=== PATIENT | male | born 1935 | race Caucasian/White ===

== ENCOUNTER → 2016-06-30 | Outpatient (CLI) | payer OTHER, MEDICARE | LOC: BHFA 10:00 | PROVIDERS: ATTEND Internal Medicine Cardiovascular Disease | DX: I35.0 Nonrheumatic aortic (valve) stenosis (principal) ==

== ENCOUNTER → 2016-09-09 | Outpatient (CLI) | payer OTHER, MEDICARE | LOC: BHCLAF 14:30 | PROVIDERS: ATTEND Internal Medicine Cardiovascular Disease | DX: I35.0 Nonrheumatic aortic (valve) stenosis (principal); I25.10 Atherosclerotic heart disease of native coronary artery without angina pectoris; E11.9 Type 2 diabetes mellitus without complications; E78.00 Pure hypercholesterolemia, unspecified; I10 Essential (primary) hypertension; I48.0 Paroxysmal atrial fibrillation | CPT/HCPCS: 93005-PO ==

== ENCOUNTER 2016-09-12 06:46 | Observation (INO) | payer OTHER, MEDICARE ==
[~2016-09-12 06:46] MED LIST: CLINDAMYCIN 600 MG/DEXTROSE 50 ML IV ONE
[2016-09-12] MEDS ORDERED: LIDOCAINE 1% 2 ML INJ ONE (06:55)
[2016-09-12] MEDS ORDERED: LIDOCAINE 1% 5 ML SDV ID PRN (07:23)
[2016-09-12] MEDS ORDERED: LR 1,000 ML IV ONE (07:23)
[2016-09-12] MEDS ORDERED: BUPIVACAINE 0.5% 30 ML SDV ONE (07:45)
[2016-09-12] MEDS ORDERED: PROPOFOL 200 MG/20 ML VIAL ONE ×2 (07:59)
[2016-09-12] MEDS ORDERED: fentaNYL 100 MCG/2 ML INJ ONE ×2 (07:59→08:11)
[2016-09-12] MEDS ORDERED: ROCURONIUM 50 MG/5 ML VIAL ONE (08:14)
[2016-09-12] MEDS ORDERED: LIDOCAINE 2% 5 ML SDV ONE (08:14)
[2016-09-12] MEDS ORDERED: HYDROmorphONE/DILAUDID 1 MG/ML SYR IVP PRN (09:28)
[2016-09-12] MEDS ORDERED: ONDANSETRON 4 MG/2 ML VIAL IVP PRN (09:28)
--- NOTE | 2016-09-12 09:31 | POSTOPPROG ---
Post Op Note Date of Operation: 09/12/16 Surgeon: Augusto Mann [employer]per [employer]ation: Mady Melendez Anesthesiologist: Jules Lozano Anesthesia: GET(General Endotracheal) Pre-op Diagnosis: incisional VH Post-op Diagnosis: same, multiple adjacent defects Procedure: open VH repair with composite mesh Findings: +hernia defect Inf/Abcess present in the surg proc area at time of surgery?: No EBL: Minimal Complications: none
[2016-09-12] MEDS: NS W/ 20 KCl/L 1,000 ML IV SCH (10:44)
--- NOTE | 2016-09-12 17:42 | SOAPPROG ---
SOAP Progress Note Assessment/Plan: Assessment: AFEBRILE/ DOING OKAY A POSTOP/ WOUND OKAY Plan: HOME IN THE A.M. 09/12/16 17:41 Objective: Vital Signs Temp Pulse Resp BP Pulse Ox 36.3 C 71 12 143/78 H 93 09/12/16 16:12 09/12/16 16:12 09/12/16 16:12 09/12/16 16:12 09/12/16 16:12 09/11/16 09/12/16 09/13/16 05:59 05:59 05:59 Intake Total 700 Output Total 15 Balance 685 ICD10 Worksheet Patient Problems: Problems Problem Status Onset Abdominal pain Acute Bacteremia Acute Sepsis Acute
[2016-09-12] MEDS: OXYCODONE/APAP 5/325 TAB PO PRN ×2 (20:02→23:56)
[2016-09-13] MEDS: NS W/ 20 KCl/L 1,000 ML IV SCH (03:39)
[2016-09-13] MEDS ORDERED: NITROGLYCERIN 0.4 MG BTL SL PRN (05:40)
[2016-09-13] MEDS ORDERED: POLYETHYLENE GLYCOL 3350 17 GM PKT PO PRN (05:40)
[2016-09-13] MEDS: OXYCODONE/APAP 5/325 TAB PO PRN ×2 (06:04→10:54)
[2016-09-13] MEDS ORDERED: metFORMIN HCL 850 MG TAB PO SCH (08:00)
[2016-09-13] MEDS ORDERED: ISOSORBIDE MONONITRATE 30 MG TAB.SR PO SCH (09:00)
[2016-09-13] MEDS ORDERED: NEBIVOLOL HCL 5 MG TAB PO SCH (09:00)
[2016-09-13] MEDS ORDERED: RAMIPRIL 5 MG CAP PO SCH (09:00)
[2016-09-13] MEDS ORDERED: ASPIRIN 81 MG CHEWABLE TAB PO SCH (09:00)
[2016-09-13] MEDS ORDERED: TAMSULOSIN HCL 0.4 MG CAP PO SCH (09:00)
[2016-09-13] MEDS ORDERED: DOCUSATE SODIUM 100 MG CAP PO ONE (10:14)
--- NOTE | 2016-09-13 11:37 | SOAPPROG ---
SOAP Progress Note Assessment/Plan: Assessment/Plan: 81 Y M s/p VH repair. POD#1. Doing well. Wean from O2. Patient uses O2 at night. If unable to wean then he will use home O2 already arranged and f/u c PCP. D/c to home. S: Minimal pain. Eating. O: gen: alert, nad ctab rrr abd: Wounds cdi. Hernia repair intact. 09/13/16 11:32 Objective: Vital Signs Temp Pulse Resp BP Pulse Ox 37.2 C 66 18 149/80 H 94 09/13/16 08:00 09/13/16 08:00 09/13/16 08:00 09/13/16 08:00 09/13/16 08:00 09/12/16 09/13/16 09/14/16 05:59 05:59 05:59 Intake Total 1900 Output Total 220 515 Balance -220 1385 ICD10 Worksheet Patient Problems: Problems Problem Status Onset Abdominal pain Acute Bacteremia Acute Sepsis Acute
--- NOTE | 2016-09-13 12:40 | GOP ---
[f rep st] OPERATIVE REPORT DATE OF OPERATION: 09/12/2016 SURGEON: Augusto Mann MD PREOPERATIVE DIAGNOSIS: Symptomatic incisional ventral hernia. POSTOPERATIVE DIAGNOSIS: Symptomatic incisional ventral hernia. PROCEDURE PERFORMED: Ventral hernia repair with mesh. FINDINGS: 2 separate midline defects which were coalesced into 1 defect measuring 6 cm in length ASST: Mady MARS DESCRIPTION OF PROCEDURE: Patient taken to the operating room where he received satisfactory general endotracheal anesthesia by Dr. Lozano. He was placed in supine position, prepped and draped in usual sterile fashion. A vertical incision was made through previous old incision in the periumbilical area. Dissection extended down through the subcutaneous tissue, and the attenuated thin hernia sac was dissected free from surrounding subcutaneous tissue and back to the fascial edges. It was comprised of 2 separate fascial defects. The sac was opened, its contents reduced. The fascial bridge was divided. The excess sac was amputated. A subfascial space was created. This was closed with a running 0 Vicryl suture. A Covidien polyester mesh dual sided patch was placed in that space and anchored peripherally around the wound with #1 Ethibond mattress sutures. The primary fascial edges were debrided back to good solid tissue and then closed directly with interrupted 0 S she has been interrupted #1 Ethibond mattress [id number] sutures. Wound was infiltrated with 0.5% Marcaine. Subcu was closed with 2-0 Vicryl, skin with 4- 0 Monocryl subcuticular stitch. He tolerated the procedure well, was taken to the recovery room in good condition. There were no complications. /[id number]/MODL MTDD
[2016-09-13 13:17] VITALS: BP 136/79; PULSE 72; RESP 20; TEMP 98; O2SAT 90
[2016-09-13] MEDS ORDERED: FAMOTIDINE 20 MG TAB PO SCH (21:00)
[2016-09-13] MEDS ORDERED: ATORVASTATIN CALCIUM 40 MG TAB PO SCH (21:00)
== END 2016-09-13 14:10 | disposition home or self-care (01) ==
LOC: FSGY 06:46 → F3E 09:36
PROVIDERS: ADMIT Surgery; ATTEND Surgery
PROC: 0WUF0JZ Supplement Abdominal Wall with Synthetic Substitute, Open Approach (ICD-10-PCS; principal; 2016-09-12 08:15)
DX: K43.0 Incisional hernia with obstruction, without gangrene (principal); I10 Essential (primary) hypertension; I25.10 Atherosclerotic heart disease of native coronary artery without angina pectoris; I48.0 Paroxysmal atrial fibrillation; E11.9 Type 2 diabetes mellitus without complications; E78.5 Hyperlipidemia, unspecified; Z88.0 Allergy status to penicillin; Z95.0 Presence of cardiac pacemaker
CPT/HCPCS: 49560; C1781; J2704; J3010

== ENCOUNTER 2016-09-15 18:22 | Inpatient (IN) | payer OTHER, MEDICARE ==
--- NOTE | 2016-09-15 18:46 | EDPHY ---
H & P Stated Complaint: Abd pain hernia surg on monday Time Seen by Provider: 09/15/16 18:45 - Personal History Current Tetanus/Diphtheria Vaccine: No Current Tetanus Diphtheria and Acellular Pertussis (TDAP): No - Medical/Surgical History Hx Asthma: No Hx Chronic Respiratory Disease: No Hx Diabetes: Yes Hx Cardiac Disease: Yes Hx Renal Disease: No Hx Cirrhosis: No Hx Alcoholism: No Hx HIV/AIDS: No Hx Splenectomy or Spleen Trauma: No Other PMH: CABG X 3, CAD, COR PULMONAE, COPD, NIDDM, BPH, JAEL, HTN, Diabetes, Cholectomy. - Social History Smoking Status: Former smoker Constitutional: Initial Vital Signs Temperature (C) 36.4 C 09/15/16 18:30 Heart Rate 81 09/15/16 18:30 Respiratory Rate 14 09/15/16 18:30 Blood Pressure 118/71 09/15/16 18:30 O2 Sat (%) 91 L 09/15/16 18:30 O2 Delivery Mode Room Air O2 (L/minute) 2 Allergies/Adverse Reactions: Penicillins Allergy (Mild, Verified 09/06/16 10:11) Rash Home Medications: Medication Instructions Recorded Aspirin EC [Aspirin EC 81 mg (*)] 81 mg PO HS 09/15/16 Atorvastatin Calcium 80 mg PO HS 09/15/16 Isosorbide Mononitrate [Imdur 30 30 mg PO DAILY 09/15/16 mg (*)] Multivitamins [Multivitamin (*)] 1 each PO DAILY 09/15/16 Nebivolol HCl [Bystolic] 10 mg PO DAILY 09/15/16 Nitroglycerin [Nitrostat 0.4 mg 0.4 mg SL AD PRN 09/15/16 (*)] Pillow-3 Fatty Acids [Fish Oil 1000 1,000 mg PO DAILY 09/15/16 mg (*)] Ramipril [Altace 5mg (*)] 5 mg PO DAILY 09/15/16 Tamsulosin HCl [Flomax 0.4 MG (*)] 0.4 mg PO DAILY 09/15/16 metFORMIN HCL [Glucophage 850 mg 850 mg PO BIDMEAL 09/15/16 (*)] Medical Decision Making - Diagnostics Imaging Results: Imaging Impressions Abdomen CT 09/15/16 19:12 Impression: 1. Sequela of recent postoperative change following a ventral wall hernia repair , with some recurrence of herniation and localized stenosis of small bowel resulting in upstream dilatation (small bowel obstruction, query localized partially entrapped bowel). 2. Small amount of perihepatic ascites. 3. Status post right hemicolectomy and cholecystectomy. Findings were discussed with Sharad Doty MD at 20:43, on 09/15/2016. Imaging: Discussed imaging studies w/ sap portal developer Radiologist, I viewed and interpreted images myself ED Course/Re-evaluation: CHIEF COMPLAINT: Abdominal pain HISTORY OF PRESENT ILLNESS: This is an 81 y/o male complaining of worsening abdominal pain onset 01:00 this morning, 18 hours ago, subsequent to a bowel movement. He has a history significant for CAD, CABG x3, diabetes, and colon cancer. He had an umbilical surgery repair on Monday, 3 days ago. He was unable to pass stool even with laxatives until this morning. He has a prior history of constipation related to opiate use following his colectomy 2 years ago. Directly after the bowel movement he developed dull and non-radiating pain he rates 2/10 in severity. His pain is worse with palpation and some movements. It did not improve with nitro or antacids. REVIEW OF SYSTEMS: A 10 point review of systems was performed and is negative with the exception of the elements mentioned in the history of present illness. PHYSICAL EXAM: HR, BP, O2 Sat, RR. Temp noted General Appearance: Alert, well hydrated, appropriate, and non-toxic appearing. Head: Atraumatic without scalp tenderness or obvious injury Eyes: Pupils equal, round, reactive to light and accommodation, EOMI, no trauma , no injection. Nose: Atraumatic, no rhinorrhea, clear. Throat: mucus membranes moist. Neck: Supple Respiratory: No retractions, no distress, no wheezes, and no accessory muscle use. Lungs are clear to auscultation bilaterally. Cardiovascular: Regular rate and rhythm, no murmurs, rubs, or gallops. Good capillary refill all extremities. Gastrointestinal: Abdomen is soft, diffuse mild tenderness worse in epigastrium , non-distended, no masses, no rebound, no guarding, no peritoneal signs. Ventral incision is clean, dry, intact. Ecchymosis to lower abdomen. Musculoskeletal: Normal active ROM of all extremities, atraumatic. Neurological: Alert, appropriate, and interactive. Nonfocal neuro exam. Skin: No rashes, good turgor, no nodules on palpation. Past medical history: Angina, CAD, diabetes, pulmonary hypertension, sleep apnea , chronic respiratory failure, BPH, colon cancer Past surgical history: Ventral hernia repair - Dr. Mann, colectomy 2 years ago , CABG x3 1993 Family history: noncontributory Social history: Former smoker. No alcohol. Family member at bedside. PCP: Dr. Will Soaker Soda Worker: Dr. Peterson Prior medical records reviewed including admission 02/27/2014 for abdominal pain. DIAGNOSTICS/PROCEDURES/CRITICAL CARE TIME: The 12 lead EKG was interpreted by myself. See hard copy and/or "tracemaster" electronic copy for interpretation. Abdominal CT: Partial small bowel obstruction DIFFERENTIAL DIAGNOSIS: The differential diagnosis for the patient's abdominal pain included but was not limited to appendicitis, cholecystitis, hernias, testicular torsion, gastritis, and urinary tract infection. MEDICAL DECISION MAKING: This is an 81 y/o male 3 days post-ventral hernia repair who presents with diffuse abdominal tenderness after a bowel movement early this morning. He has been constipated since the surgery until his bowel movement this morning. He stopped taking his pain medication today concerned it was contributing to his constipation. He has diffuse tenderness on exam. His incision site is clean, dry , and intact. Plan for IV, labs, abdominal CT, EKG, and symptom management. 4mg IV Zofran, 30mg IV Toradol, and 1L IV NS administered. 2045: CT shows partial small bowel obstruction at site of repair. Dr. Mann paged. 2047: Consulted with Dr. Mann, surgeon. He will asses patient in the ED. 2114: Dr. Mann will admit patient for partial small bowel obstruction. - Data Points Laboratory Results: Laboratory Results 09/15/16 18:55 09/15/16 18:55 09/15/16 09/15/16 18:55 18:55 WBC 6.86 10^3/uL 10^3/uL (3.80-9.50) RBC 5.20 10^6/uL 10^6/uL (4.40-6.38) Hgb 15.0 g/dL g/dL (13.7-17.5) Hct 44.7 % % (40.0-51.0) MCV 86.0 fL fL (81.5-99.8) MCH 28.8 pg pg (27.9-34.1) MCHC 33.6 g/dL g/dL (32.4-36.7) RDW 15.5 % H % (11.5-15.2) Plt Count 134 10^3/uL L 10^3/uL (150-400) MPV 10.8 fL fL (8.7-11.7) Neut % (Auto) 87.2 % H % (39.3-74.2) Lymph % (Auto) 7.4 % L % (15.0-45.0) Todd % (Auto) 5.0 % % (4.5-13.0) Eos % (Auto) 0.0 % L % (0.6-7.6) Baso % (Auto) 0.1 % L % (0.3-1.7) Nucleat RBC Rel Count 0.0 % % (0.0-0.2) Absolute Neuts (auto) 5.98 10^3/uL 10^3/uL (1.70-6.50) Absolute Lymphs (auto) 0.51 10^3/uL L 10^3/uL (1.00-3.00) Absolute Monos (auto) 0.34 10^3/uL 10^3/uL (0.30-0.80) Absolute Eos (auto) 0.00 10^3/uL L 10^3/uL (0.03-0.40) Absolute Basos (auto) 0.01 10^3/uL L 10^3/uL (0.02-0.10) Absolute Nucleated RBC 0.00 10^3/uL 10^3/uL (0-0.01) Immature Gran % 0.3 % % (0.0-1.1) Immature Gran # 0.02 10^3/uL 10^3/uL (0.00-0.10) Sodium 134 mEq/L mEq/L (134-144) Potassium 4.6 mEq/L mEq/L (3.5-5.2) Chloride 100 mEq/L mEq/L (97-110) Carbon Dioxide 19 mEq/l L mEq/l (22-31) Anion Gap 15 mEq/L mEq/L (8-16) BUN 35 mg/dL H mg/dL (7-23) Creatinine 1.0 mg/dL mg/dL (0.7-1.3) Estimated GFR > 60 Glucose 192 mg/dL H mg/dL (70-100) Calcium 9.5 mg/dL mg/dL (8.5-10.4) Total Bilirubin 2.3 mg/dL H mg/dL (0.1-1.4) Conjugated Bilirubin 0.7 mg/dL H mg/dL (0.0-0.5) Unconjugated Bilirubin 1.6 mg/dL H mg/dL (0.0-1.1) AST 24 IU/L IU/L (17-59) ALT 34 IU/L IU/L (21-72) Alkaline Phosphatase 41 IU/L IU/L (38-126) Troponin I < 0.012 ng/mL ng/mL (0-0.034) Total Protein 7.0 g/dL g/dL (6.3-8.2) Albumin 4.2 g/dL g/dL (3.5-5.0) Lipase 41.0 IU/L IU/L (23-300) Medications Given: Discontinued Medications Sodium Chloride (Ns) 1,000 mls @ 0 mls/hr IV ONCE ONE PRN Reason: Wide Open Stop: 09/15/16 19:13 Last Admin: 09/15/16 19:25 Dose: 1,000 mls Ketorolac Tromethamine (Toradol) 30 mg IVP EDNOW ONE Stop: 09/15/16 19:33 Last Admin: 09/15/16 19:40 Dose: 30 mg Ondansetron HCl (Zofran) 4 mg IVP EDNOW ONE Stop: 09/15/16 19:36 Last Admin: 09/15/16 19:39 Dose: 4 mg Departure - Departure Disposition: [facility] Inpatient Acute Clinical Impression: Partial small bowel obstruction Abdominal pain Qualifiers: Abdominal location: generalized Qualified Code(s): R10.84 - Generalized abdominal pain Condition: Fair Report Scribed for: Sharad Doty Report Scribed by: Chiara Michael Date of Report: 09/15/16 Time of Report: 19:32
--- NOTE | 2016-09-15 18:51 | CPEKG ---
Heart Rate: 83 RR Interval: 723 P-R Interval: 204 QRSD Interval: 140 QT Interval: 440 QTC Interval: 517 P Pooler: -32 QRS Pooler: 25 T Wave Pooler: -64 EKG Severity - ABNORMAL ECG - EKG Impression: SINUS RHYTHM EKG Impression: RIGHT BUNDLE BRANCH BLOCK Electronically Signed By: Sharad Doty 15-Sep-2016 22:49:54
[2016-09-15] MEDS ORDERED: NS 1,000 ML IV ONE (19:12)
[2016-09-15 19:18] LABS: % IMMATURE GRANULYOCYTES 0.3 % (0.0-1.1); ABSOLUTE IMMATURE GRANULOCYTES 0.02 10^3/uL (0.00-0.10); ADD DIFF? NO; ADD MORPH? NO; ADD SCAN? YES; ATYPICAL LYMPHOCYTE FLAG 0 (0-99); FRAGMENT RBC FLAG 0 (0-99); HEMATOCRIT 44.7 % (40.0-51.0); LIPEMIA HEMOLYSIS FLAG 80 (0-99); MEAN CELL HEMOGLOBIN 28.8 pg (27.9-34.1); MEAN CELL HEMOGLOBIN CONCENTR. 33.6 g/dL (32.4-36.7); MEAN PLATELET VOLUME 10.8 fL (8.7-11.7); PLATELET CLUMPS FLAG 20 (0-99); PLATELET COUNT 134 10^3/uL (150-400); RED CELL DISTRIBUTION WIDTH 15.5 % (11.5-15.2)
[2016-09-15 19:24] LABS: LEFT SHIFT FLG 200 (0-99)
[2016-09-15] MEDS ORDERED: ONDANSETRON 4 MG/2 ML VIAL ONE (19:27)
[2016-09-15 19:32] LABS: ALANINE AMINOTRANSFERASE 34 IU/L (21-72); ALBUMIN 4.2 g/dL (3.5-5.0); ALKALINE PHOSPHATASE 41 IU/L (38-126); ANION GAP 15 mEq/L (8-16); ASPARTATE AMINOTRANSFERASE 24 IU/L (17-59); BILIRUBIN,TOTAL 2.3 mg/dL (0.1-1.4); BILIRUBIN-CONJUGATED 0.7 mg/dL (0.0-0.5); BILIRUBIN-UNCONJUGATED 1.6 mg/dL (0.0-1.1); CALCIUM 9.5 mg/dL (8.5-10.4); CARBON DIOXIDE 19 mEq/l (22-31); CHLORIDE 100 mEq/L (97-110); GLOMERULAR FILTRATION RATE > 60; GLUCOSE 192 mg/dL (70-100); POTASSIUM 4.6 mEq/L (3.5-5.2); SODIUM 134 mEq/L (134-144)
[2016-09-15] MEDS ORDERED: KETOROLAC 30 MG/1 ML SDV IVP ONE (19:32)
[2016-09-15] MEDS ORDERED: IOPAMIDOL (ISOVUE-300) 100 ML BTL ONE (19:33)
[2016-09-15] MEDS ORDERED: ONDANSETRON 4 MG/2 ML VIAL IVP ONE (19:35)
[2016-09-15 19:41] LABS: TROPONIN I < 0.012 ng/mL (0-0.034)
[2016-09-15 19:48] LABS: SCAN NEGATIVE
[2016-09-15] MEDS: ATORVASTATIN CALCIUM 40 MG TAB PO SCH (19:51)
[2016-09-15] MEDS ORDERED: NITROGLYCERIN 0.4 MG BTL SL PRN (22:13)
--- NOTE | 2016-09-15 22:24 | SOAPPROG ---
SOAP Progress Note Assessment/Plan: Assessment: 81-YEAR-OLD MALE WHO IS 3 DAYS POSTOP FROM VENTRAL HERNIA REPAIR. ADMITTED AT THIS TIME WITH THE VAGUE ABDOMINAL PAIN AND QUESTION OF POSSIBLE SMALL BOWEL OBSTRUCTION POSTOP ON CT SCAN. LABS ARE NORMAL. HE HAS HAD NO SIGNIFICANT VOMITING AND HE HAD A NORMAL BOWEL MOVEMENT THIS MORNING. HE DID HAVE SOME HARD STRAINING FOR A BOWEL MOVEMENT AND HE IS WORRIED THAT HE COULD HAVE POP SOMETHING LOOSE DOES HAVE A SIGNIFICANT CARDIAC HISTORY ALLERGIES PENICILLIN / MEDICATIONS LISTED HEENT NONICTERIC WITHOUT ADENOPATHY AND NO ORAL LESIONS CHEST CLEAR AND SYMMETRIC CARDIAC REGULAR RHYTHM ABDOMEN IS SOFT SLIGHTLY DISTENDED NONTENDER / MIDLINE INCISION HEALING WELL / NO PALPABLE EVIDENCE OF RECURRENT HERNIA Plan: ADMIT FOR OPBS / RISKS AND OPTIONS FULLY DISCUSSED / POSSIBLE NEED FOR LAPAROSCOPY IF SYMPTOMS PERSIST 09/15/16 22:19 Objective: Vital Signs Temp Pulse Resp BP Pulse Ox 36.4 C 72 16 133/78 H 94 09/15/16 18:30 09/15/16 21:19 09/15/16 21:19 09/15/16 21:19 09/15/16 21:19 09/14/16 09/15/16 09/16/16 05:59 05:59 05:59 Intake Total 1000 Balance 1000 ICD10 Worksheet Patient Problems: Problems Problem Status Onset Abdominal pain Acute Partial small bowel obstruction Acute Bacteremia Acute Sepsis Acute
[2016-09-15] MEDS: ONDANSETRON 4 MG/2 ML VIAL IVP PRN (22:37)
[2016-09-16] MEDS: KETOROLAC 15 MG/1 ML SDV IVP SCH ×4 (00:01→19:13)
[2016-09-16] MEDS: ONDANSETRON 4 MG/2 ML VIAL IVP PRN ×2 (05:00→11:19)
[2016-09-16 05:16] LABS: ANION GAP 13 mEq/L (8-16); CALCIUM 9.4 mg/dL (8.5-10.4); CARBON DIOXIDE 22 mEq/l (22-31); CHLORIDE 101 mEq/L (97-110); GLOMERULAR FILTRATION RATE > 60; GLUCOSE 199 mg/dL (70-100); POTASSIUM 4.5 mEq/L (3.5-5.2); SODIUM 136 mEq/L (134-144)
[2016-09-16 05:26] LABS: ADD MORPH? NO; ATYPICAL LYMPHOCYTE FLAG 0 (0-99); FRAGMENT RBC FLAG 0 (0-99); HEMATOCRIT 44.4 % (40.0-51.0); HEMOGLOBIN 14.9 g/dL (13.7-17.5); LIPEMIA HEMOLYSIS FLAG 80 (0-99); MEAN CELL HEMOGLOBIN 28.7 pg (27.9-34.1); MEAN CELL HEMOGLOBIN CONCENTR. 33.6 g/dL (32.4-36.7); MEAN CELL VOLUME 85.5 fL (81.5-99.8); MEAN PLATELET VOLUME 10.5 fL (8.7-11.7); PLATELET CLUMPS FLAG 0 (0-99); PLATELET COUNT 127 10^3/uL (150-400); RED BLOOD CELL COUNT 5.19 10^6/uL (4.40-6.38); RED CELL DISTRIBUTION WIDTH 15.8 % (11.5-15.2)
[2016-09-16 05:27] LABS: ADD SCAN? YES
[2016-09-16 05:31] LABS: LEFT SHIFT FLG 300 (0-99)
[2016-09-16 06:08] LABS: ADD DIFF? YES; SCAN POSITIVE
[2016-09-16 06:15] LABS: PLATELET ESTIMATE DECREASED (ADEQ)
[2016-09-16] MEDS ORDERED: PANTOPRAZOLE SODIUM 40 MG in NS 100 ML IV ONE (08:00)
[2016-09-16] MEDS: RAMIPRIL 5 MG CAP PO SCH ×2 (08:04→10:28)
[2016-09-16] MEDS: NEBIVOLOL HCL 5 MG TAB PO SCH ×2 (08:05→10:30)
[2016-09-16] MEDS: ISOSORBIDE MONONITRATE 30 MG TAB.SR PO SCH ×2 (08:06→10:28)
[2016-09-16] MEDS: TAMSULOSIN HCL 0.4 MG CAP PO SCH (10:43)
[2016-09-16] MEDS ORDERED: BUPIVACAINE 0.5% 30 ML SDV ONE (11:38)
[2016-09-16] MEDS ORDERED: HEPARIN 1000 UNIT/1 ML MDV ONE (11:39)
[2016-09-16] MEDS ORDERED: THROMBIN(HUM PLAS)/FIBRINOG/CA 5 ML VIAL TP ONE (11:39)
[2016-09-16] MEDS ORDERED: ceFAZolin 1 GM/5 ML SYR ONE (11:39)
[2016-09-16] MEDS: D5W 1/2 NS W/ 20 KCl/L 1,000 ML IV SCH ×3 (13:45→21:00)
--- NOTE | 2016-09-16 16:28 | PDCARPN ---
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 #. CAD: has had ventral hernia repair last week His last MPI from 08/07 showed inf-lat ischemia which stable and likely due to SPACE OPERATIONS OFFICER LCx He has been on med management and has angina only at higher levels of exertion Continue BB and if NPO he may have IV Metoprolol OK to proceed to surgery if warranted for SBO #. mild : we have followed him with serial echoes Plan: Cardiology will follow along 09/16/16 16:25 Objective: Intake/Output (24 Hrs) 09/15/16 09/16/16 09/17/16 05:59 05:59 05:59 Output Total 3700 Balance -3700 Output: Urine (ml) 300 Urinal 300 NG Drainage (ml) 3400 Large Bore (>12 Guamanian) 3400 Result Diagrams: 09/16/16 04:53 09/16/16 04:53 - Physical Exam Constitutional: no apparent distress Eyes: anicteric sclera Ears, Nose, Mouth, Throat: moist mucous membranes Cardiovascular: regular rate and rhythm, systolic murmur Respiratory: clear to auscultate bilat Gastrointestinal: no tenderness, other (+BS) Neurologic: AAOx3 Psychiatric: cooperative, interactive ICD10 Worksheet Patient Problems: Problems Problem Status Onset Abdominal pain Acute Sepsis Acute Bacteremia Acute Partial small bowel obstruction Acute
[2016-09-16] MEDS ORDERED: fentaNYL 100 MCG/2 ML INJ ONE ×2 (17:01)
[2016-09-16] MEDS ORDERED: PROPOFOL/EMULSION 500 MG/50 ML BOTTLE IV ONE (17:02)
[2016-09-16] MEDS ORDERED: CLINDAMYCIN 600 MG/DEXTROSE/50 ML BAG IV ONE (17:32)
[2016-09-16] MEDS ORDERED: CLINDAMYCIN 600 MG/DEXTROSE 50 ML IV ONE (18:00)
--- NOTE | 2016-09-16 19:48 | SOAPPROG ---
SOAP Progress Note Assessment/Plan: Assessment: 81-YEAR-OLD MALE WHO IS 3 DAYS POSTOP FROM VENTRAL HERNIA REPAIR. ADMITTED AT THIS TIME WITH THE VAGUE ABDOMINAL PAIN AND QUESTION OF POSSIBLE SMALL BOWEL OBSTRUCTION POSTOP ON CT SCAN. LABS ARE NORMAL. HE HAS HAD NO SIGNIFICANT VOMITING AND HE HAD A NORMAL BOWEL MOVEMENT THIS MORNING. HE DID HAVE SOME HARD STRAINING FOR A BOWEL MOVEMENT AND HE IS WORRIED THAT HE COULD HAVE POP SOMETHING LOOSE DOES HAVE A SIGNIFICANT CARDIAC HISTORY ALLERGIES PENICILLIN / MEDICATIONS LISTED HEENT NONICTERIC WITHOUT ADENOPATHY AND NO ORAL LESIONS CHEST CLEAR AND SYMMETRIC CARDIAC REGULAR RHYTHM ABDOMEN IS SOFT SLIGHTLY DISTENDED NONTENDER / MIDLINE INCISION HEALING WELL / NO PALPABLE EVIDENCE OF RECURRENT HERNIA Plan: ADMIT FOR OPBS / RISKS AND OPTIONS FULLY DISCUSSED / POSSIBLE NEED FOR LAPAROSCOPY IF SYMPTOMS PERSIST 09/15/16 22:19 09/16/16 19:47 SMALL-BOWEL OBSTRUCTION SYMPTOMS HAVE PERSISTED / NG PLACED THIS A.M. IS DRAIN 2500 CC / MINIMAL FLATUS OR BOWEL MOVES / ABDOMEN SOFT AND NONTENDER BUT SLIGHTLY DISTENDED RISKS AND OPTIONS FULLY DISCUSSED / I RECOMMEND WE PROCEED WITH THE LAPAROSCOPY TO RULE OUT AN INTERNAL HERNIA Objective: Vital Signs Temp Pulse Resp BP Pulse Ox 36.6 C 75 17 116/64 94 09/16/16 19:45 09/16/16 19:45 09/16/16 19:45 09/16/16 19:45 09/16/16 19:45 09/15/16 09/16/16 09/17/16 05:59 05:59 05:59 Intake Total 1000 Output Total 3700 Balance -2700 ICD10 Worksheet Patient Problems: Problems Problem Status Onset Abdominal pain Acute Partial small bowel obstruction Acute Bacteremia Acute Sepsis Acute
--- NOTE | 2016-09-16 19:50 | POSTOPPROG ---
Post Op Note Date of Operation: 09/16/16 Surgeon: Augusto Mann Anesthesiologist: JESSICA Anesthesia: GET(General Endotracheal) Pre-op Diagnosis: SMALL-BOWEL OBSTRUCTION Post-op Diagnosis: SAME WITH INTERNAL HERNIA Indication: LARGE NG OUTPUT Procedure: LAPAROSCOPIC REDUCTION OF INTERNAL HERNIA AND REPAIR Findings: SUB-PERITONEAL INTERNAL HERNIA POCKET SECONDARY TO BREAKDOWN OF THE TATIANNA Inf/Abcess present in the surg proc area at time of surgery?: No Depth: Organ Space EBL: Minimal Complications: NONE Specimen(s): NONE
[2016-09-16] MEDS ORDERED: D5W 1/2 NS W/ 20 KCl/L 1,000 ML IV SCH (20:00)
[2016-09-17] MEDS: KETOROLAC 15 MG/1 ML SDV IVP SCH ×3 (00:06→12:21)
[2016-09-17] MEDS: D5W 1/2 NS W/ 20 KCl/L 1,000 ML IV SCH ×3 (04:00→17:57)
[2016-09-17] MEDS: ISOSORBIDE MONONITRATE 30 MG TAB.SR PO SCH (08:43)
[2016-09-17] MEDS: RAMIPRIL 5 MG CAP PO SCH (08:43)
[2016-09-17] MEDS: NEBIVOLOL HCL 5 MG TAB PO SCH (08:43)
[2016-09-17] MEDS: TAMSULOSIN HCL 0.4 MG CAP PO SCH (08:44)
--- NOTE | 2016-09-17 10:38 | SOAPPROG ---
[facility] Progress Note Assessment/Plan: 1. SBO - Pt admitted with SBO. He is s/p surgery. Still requires NG tube. 2. CAD - Pt has known CAD. He is s/p CABG in 1993. Angiogram in 2003 with SUPERVISOR PAPER MACHINE of LCX. Pt managed medically since this time for stable angina. Recent stress test on 07/07/16 with lateral infarct c/w SUPERVISOR PAPER MACHINE. Pt denies symptoms of angina at this time. --> Continue medical management bystolic, ramapril, and imdur. --> Resume Asa when appropriate 3. HTN - Well controlled. --> Continue current therapy. Subjective: + abdominal pain No angina No orthopnea or PND Objective: Vital Signs Temp Pulse Resp BP Pulse Ox 36.8 C 67 17 112/63 90 L 09/17/16 08:00 09/17/16 08:00 09/17/16 08:00 09/17/16 08:00 09/17/16 08:00 09/16/16 09/17/16 09/18/16 05:59 05:59 05:59 Intake Total 2017 Output Total 3952 Balance -1933 Physical Exam - Physical Exam General Appearance: alert, mild distress Respiratory: lungs clear Cardiac/Chest: regular rate, rhythm, systolic murmur Abdomen: soft, No normal bowel sounds Skin: normal color Extremities: No pedal edema Neuro/Psych: alert ICD10 Worksheet Patient Problems: Problems Problem Status Onset Abdominal pain Acute Partial small bowel obstruction Acute Bacteremia Acute Sepsis Acute
--- NOTE | 2016-09-17 13:54 | SOAPPROG ---
SOAP Progress Note Assessment/Plan: Assessment: s/p laparoscopy and reduction of hernia NG output still dark with 150 cc since 6 am Hopefully will be able to remove tomorrow Having loose stools S: Feeling improved O: Sitting in bed, at bedside Ecchymosis on lower abdomen Incisions cdi BS hypoactive NG with very dark bilious output Plan: 09/17/16 13:52 Objective: Vital Signs Temp Pulse Resp BP Pulse Ox 36.6 C 70 17 118/69 94 09/17/16 12:00 09/17/16 12:00 09/17/16 12:00 09/17/16 12:00 09/17/16 12:33 09/16/16 09/17/16 09/18/16 05:59 05:59 05:59 Intake Total 2017 Output Total 8424 450 Balance -1933 -450 ICD10 Worksheet Patient Problems: Problems Problem Status Onset Abdominal pain Acute Partial small bowel obstruction Acute Bacteremia Acute Sepsis Acute
[2016-09-17] MEDS ORDERED: NON-FORMULARY NEW DRUG (Atorvastatin Calcium [Atorvastatin Calcium] 80 MG) PO SCH (21:00)
[2016-09-17] MEDS: ASPIRIN EC 81 MG TAB PO SCH (21:26)
[2016-09-17] MEDS: ATORVASTATIN CALCIUM 40 MG TAB PO SCH (21:26)
[2016-09-18] MEDS: HYDROmorphONE/DILAUDID 1 MG/ML SYR IVP PRN ×2 (04:31→08:21)
[2016-09-18 08:04] LABS: % IMMATURE GRANULYOCYTES 0.7 % (0.0-1.1); ABSOLUTE IMMATURE GRANULOCYTES 0.04 10^3/uL (0.00-0.10); ADD DIFF? NO; ADD MORPH? NO; ADD SCAN? YES; ATYPICAL LYMPHOCYTE FLAG 0 (0-99); FRAGMENT RBC FLAG 0 (0-99); HEMATOCRIT 39.9 % (40.0-51.0); HEMOGLOBIN 13.2 g/dL (13.7-17.5); LIPEMIA HEMOLYSIS FLAG 80 (0-99); MEAN CELL HEMOGLOBIN 28.9 pg (27.9-34.1); MEAN CELL HEMOGLOBIN CONCENTR. 33.1 g/dL (32.4-36.7); MEAN CELL VOLUME 87.5 fL (81.5-99.8); MEAN PLATELET VOLUME 9.7 fL (8.7-11.7); PLATELET CLUMPS FLAG 0 (0-99); PLATELET COUNT 101 10^3/uL (150-400); RED BLOOD CELL COUNT 4.56 10^6/uL (4.40-6.38); RED CELL DISTRIBUTION WIDTH 15.3 % (11.5-15.2)
[2016-09-18 08:05] LABS: LEFT SHIFT FLG 100 (0-99)
[2016-09-18] MEDS: D5W 1/2 NS W/ 20 KCl/L 1,000 ML IV SCH ×2 (08:20→23:27)
[2016-09-18] MEDS: TAMSULOSIN HCL 0.4 MG CAP PO SCH (08:25)
[2016-09-18] MEDS: RAMIPRIL 5 MG CAP PO SCH (08:25)
[2016-09-18] MEDS: ISOSORBIDE MONONITRATE 30 MG TAB.SR PO SCH (08:25)
[2016-09-18] MEDS: NEBIVOLOL HCL 5 MG TAB PO SCH (08:25)
[2016-09-18 08:26] LABS: SCAN POSITIVE
[2016-09-18 08:29] LABS: PLATELET ESTIMATE DECREASED (ADEQ)
--- NOTE | 2016-09-18 10:54 | SOAPPROG ---
SOAP Progress Note Assessment/Plan: Assessment: s/p laparoscopy and reduction of hernia NG output vest maker but >500 out in 12 hours Clamp trial this afternoon Hard candy okay. 1 popsicle per shift okay S: Feeling improved O: Sitting in bed, at bedside Ecchymosis on lower abdomen Incisions cdi BS present NG with thin bilious output CTAB Regular Plan: 09/17/16 13:52 09/18/16 10:53 Objective: Vital Signs Temp Pulse Resp BP Pulse Ox 36.7 C 68 16 156/76 H 89 L 09/18/16 08:00 09/18/16 08:00 09/18/16 08:00 09/18/16 08:00 09/18/16 08:32 Laboratory Results 09/18/16 07:50 09/17/16 09/18/16 09/19/16 05:59 05:59 05:59 Intake Total 2016 2750 100 Output Total 3950 3180 550 Balance -1933 -430 -450 ICD10 Worksheet Patient Problems: Problems Problem Status Onset Abdominal pain Acute Partial small bowel obstruction Acute Bacteremia Acute Sepsis Acute
--- NOTE | 2016-09-18 14:49 | SOAPPROG ---
JANE Progress Note Assessment/Plan: 1. SBO - Pt admitted with SBO. He is s/p surgery. NG clamp trial this afternoon. 2. CAD - Pt has known CAD. He is s/p CABG in 1993. Angiogram in 2003 with DIGITIZER of LCX. Pt managed medically since this time for stable angina. Recent stress test on 07/07/16 with lateral infarct c/w DIGITIZER. Pt denies symptoms of angina at this time. --> Continue medical management bystolic, ramapril, and imdur. --> Resume Asa when appropriate 3. HTN - BP elevated today. --> Consider increasing ramapril 09/18/16 14:47 Subjective: NPO abdominal pain improved limited ambulation No orthopnea or PND Objective: Vital Signs Temp Pulse Resp BP Pulse Ox 36.4 C 70 16 122/73 H 95 09/18/16 12:00 09/18/16 12:00 09/18/16 12:00 09/18/16 12:00 09/18/16 12:00 Laboratory Results 09/18/16 07:50 09/17/16 09/18/16 09/19/16 05:59 05:59 05:59 Intake Total 2016 2750 100 Output Total 3950 3180 1000 Balance -1922 -597 -397 Physical Exam - Physical Exam General Appearance: alert, no apparent distress Respiratory: lungs clear Cardiac/Chest: regular rate, rhythm Neuro/Psych: alert, oriented x 3 ICD10 Worksheet Patient Problems: Problems Problem Status Onset Abdominal pain Acute Partial small bowel obstruction Acute Bacteremia Acute Sepsis Acute
[2016-09-18] MEDS: CEPACOL LOZENGE PO PRN ×2 (16:21→23:14)
[2016-09-18] MEDS: ATORVASTATIN CALCIUM 40 MG TAB PO SCH (20:38)
[2016-09-18] MEDS: ASPIRIN EC 81 MG TAB PO SCH (20:39)
--- NOTE | 2016-09-19 08:10 | PDCARPN ---
Cardiology Progress Note Assessment/Plan: 1. SBO - Pt admitted with SBO. He is s/p surgery. NG tube removed 09/18. Limited PO. No BM. + gas. 2. CAD - Pt has known CAD. He is s/p CABG in 1993. Angiogram in 2003 with EXIT BOOTH AGENT of LCX. Pt managed medically since this time for stable angina. Recent stress test on 07/07/16 with lateral infarct c/w EXIT BOOTH AGENT. Pt denies symptoms of angina at this time. --> Continue medical management bystolic, ramapril, and imdur. --> Resume Asa when appropriate 3. HTN - Reasonably well controlled. --> Continue current therapy. 4. Disposition - Currently stable from a cardiovascular stand point. Will sign off for now. Please call if we can be of further assistance. Subjective: No chest pain No orthopnea or PND ambulating around pod NG tube removed on 09/18. Eating popsicles. No BM Objective: Vital Signs (8 Hrs) Temp Pulse Resp BP Pulse Ox 09/19/16 07:07 36.6 C 71 17 144/85 H 92 09/19/16 04:00 36.6 C 72 16 123/74 H 90 L Intake/Output (24 Hrs) 09/18/16 09/19/16 09/20/16 05:59 05:59 05:59 Intake Total 2750 3094 Output Total 3180 3125 550 Balance -430 -31 -550 Intake: Oral (ml) 50 140 IV Intake (ml) 1200 1600 IV Infused (ml) 1500 1354 D5W 1/2 NS W/ 20 KCl/L 1, 1500 1354 000 ml @ 125 mls/hr IV CONT CAITLYN Rx#:[id number] Output: Urine (ml) 2230 2825 550 Bedside Commode 600 1000 Incontinence 200 Urinal 1630 1625 550 NG Drainage (ml) 950 300 Large Bore (>12 Burkinan) 950 300 Other: Intake Quantity No Sufficient Number of Voids Bedside Commode 2 2 Urinal 1 3 1 Result Diagrams: 09/18/16 07:50 09/16/16 04:53 - Physical Exam Cardiovascular: regular rate and rhythm Respiratory: clear to auscultate bilat Skin: No no edema ICD10 Worksheet Patient Problems: Problems Problem Status Onset Abdominal pain Acute Partial small bowel obstruction Acute Bacteremia Acute Sepsis Acute
[2016-09-19] MEDS: ISOSORBIDE MONONITRATE 30 MG TAB.SR PO SCH (08:46)
[2016-09-19] MEDS: TAMSULOSIN HCL 0.4 MG CAP PO SCH (08:47)
[2016-09-19] MEDS: RAMIPRIL 5 MG CAP PO SCH (08:47)
[2016-09-19] MEDS: NEBIVOLOL HCL 5 MG TAB PO SCH (08:48)
--- NOTE | 2016-09-19 17:10 | SOAPPROG ---
SOAP Progress Note Assessment/Plan: Assessment: s/p laparoscopy and reduction of hernia NG removed last evening Tolerated clears Advance diet Hopefully home tomorrow S: Feeling improved, passing flatus O: Sitting in bed, at bedside Ecchymosis on lower abdomen Incisions cdi BS present Softer today CTAB Regular Plan: 09/17/16 13:52 09/18/16 10:53 09/19/16 17:09 Objective: Vital Signs Temp Pulse Resp BP Pulse Ox 36.3 C 74 18 142/73 H 91 L 09/19/16 16:00 09/19/16 16:00 09/19/16 16:00 09/19/16 16:00 09/19/16 16:00 Laboratory Results 09/18/16 07:50 09/18/16 09/19/16 09/20/16 05:59 05:59 05:59 Intake Total 2750 3094 Output Total 1020 2776 550 Balance -430 -31 -550 ICD10 Worksheet Patient Problems: Problems Problem Status Onset Abdominal pain Acute Partial small bowel obstruction Acute Bacteremia Acute Sepsis Acute
[2016-09-19] MEDS ORDERED: POLYETHYLENE GLYCOL 3350 17 GM PKT PO PRN (17:14)
[2016-09-19] MEDS ORDERED: LACTULOSE 20 GM/30 ML UDCUP PO PRN (17:14)
[2016-09-19] MEDS ORDERED: MAGNESIUM HYDROXIDE 30 ML UDCUP PO PRN (17:14)
[2016-09-19] MEDS ORDERED: BISACODYL 10 MG SUPP PR PRN (17:14)
[2016-09-19] MEDS: ASPIRIN EC 81 MG TAB PO SCH (19:51)
[2016-09-19] MEDS: SENNOSIDES/DOCUSATE SODIUM TAB PO SCH (19:52)
[2016-09-20] MEDS: TAMSULOSIN HCL 0.4 MG CAP PO SCH (09:40)
[2016-09-20] MEDS: SENNOSIDES/DOCUSATE SODIUM TAB PO SCH (09:40)
[2016-09-20] MEDS: ISOSORBIDE MONONITRATE 30 MG TAB.SR PO SCH (09:40)
[2016-09-20] MEDS: NEBIVOLOL HCL 5 MG TAB PO SCH (09:40)
[2016-09-20] MEDS: RAMIPRIL 5 MG CAP PO SCH (09:40)
[2016-09-20 11:57] VITALS: BP 116/73; PULSE 60; RESP 15; TEMP 98; O2SAT 94
--- NOTE | 2016-09-20 12:27 | CPEKG ---
Heart Rate: 65 RR Interval: 923 QRSD Interval: 136 QT Interval: 420 QTC Interval: 437 QRS [place]: 1 T Wave [place]: 5 EKG Severity - ABNORMAL ECG - EKG Impression: ATRIAL FIBRILLATION, V-RATE 47-77 EKG Impression: RIGHT BUNDLE BRANCH BLOCK EKG Impression: ATRIAL FIBRILLATION IS NEW IN COMPARISON TO PRIOR ECG Electronically Signed By: Kamron Patrick 22-Sep-2016 12:04:46
--- NOTE | 2016-09-20 13:58 | SOAPPROG ---
SOAP Progress Note Assessment/Plan: Assessment: 81-YEAR-OLD MALE WHO IS 3 DAYS POSTOP FROM VENTRAL HERNIA REPAIR. ADMITTED AT THIS TIME WITH THE VAGUE ABDOMINAL PAIN AND QUESTION OF POSSIBLE SMALL BOWEL OBSTRUCTION POSTOP ON CT SCAN. LABS ARE NORMAL. HE HAS HAD NO SIGNIFICANT VOMITING AND HE HAD A NORMAL BOWEL MOVEMENT THIS MORNING. HE DID HAVE SOME HARD STRAINING FOR A BOWEL MOVEMENT AND HE IS WORRIED THAT HE COULD HAVE POP SOMETHING LOOSE DOES HAVE A SIGNIFICANT CARDIAC HISTORY ALLERGIES PENICILLIN / MEDICATIONS LISTED HEENT NONICTERIC WITHOUT ADENOPATHY AND NO ORAL LESIONS CHEST CLEAR AND SYMMETRIC CARDIAC REGULAR RHYTHM ABDOMEN IS SOFT SLIGHTLY DISTENDED NONTENDER / MIDLINE INCISION HEALING WELL / NO PALPABLE EVIDENCE OF RECURRENT HERNIA Plan: ADMIT FOR OPBS / RISKS AND OPTIONS FULLY DISCUSSED / POSSIBLE NEED FOR LAPAROSCOPY IF SYMPTOMS PERSIST 09/15/16 22:19 09/16/16 19:47 SMALL-BOWEL OBSTRUCTION SYMPTOMS HAVE PERSISTED / NG PLACED THIS A.M. IS DRAIN 2500 CC / MINIMAL FLATUS OR BOWEL MOVES / ABDOMEN SOFT AND NONTENDER BUT SLIGHTLY DISTENDED RISKS AND OPTIONS FULLY DISCUSSED / I RECOMMEND WE PROCEED WITH THE LAPAROSCOPY TO RULE OUT AN INTERNAL HERNIA 09/20/16 13:56 doing well/ afebrile/ bradycardic/ wound ok/ uo good/ +bm,loose/ home soon Objective: Vital Signs Temp Pulse Resp BP Pulse Ox 36.6 C 60 15 116/73 94 09/20/16 11:55 09/20/16 11:55 09/20/16 11:55 09/20/16 11:55 09/20/16 11:55 Laboratory Results 09/18/16 07:50 09/19/16 09/20/16 09/21/16 05:59 05:59 05:59 Intake Total 3094 300 150 Output Total 3125 750 Balance -31 -450 150 ICD10 Worksheet Patient Problems: Problems Problem Status Onset Abdominal pain Acute Partial small bowel obstruction Acute Bacteremia Acute Sepsis Acute
--- NOTE | 2016-09-20 14:48 | GOP ---
[f rep st] OPERATIVE REPORT DATE OF OPERATION: SURGEON: Augusto Mann MD ANESTHESIOLOGIST: Wing Fair MD. PREOPERATIVE DIAGNOSIS: Small bowel obstruction. POSTOPERATIVE DIAGNOSIS: Small bowel obstruction with internal herniation. PROCEDURE PERFORMED: Laparoscopic reduction of internal hernia and repair. FINDINGS: The patient was found to have a subperitoneal internal hernia pocket secondary to a break down of the peritoneal closure causing a small bowel obstruction. The small bowel was quite viable, no particular problem. DESCRIPTION OF PROCEDURE: Patient was taken to the operating room, received satisfactory general en dotracheal anesthesia by Dr. Fair, placed in supine position, prepped and draped in usual sterile fashion. A short incision was made in the left lower quadrant. A Veress needle was inserted. Pneu moperitoneum was established. A trocar was introduced. Laparoscope introduced. Good visualization was obtained. It appeared to be apparent that there was an incarcerated hernia. Second trocar was placed in the left lower quadrant as well under direct vision. A hernia was reduced. The small maycol wel was pulled out. It appeared to be quite viable. The hernia defect was exposed. A portion of t he peritoneum was incised and the peritoneal limbs were tacked up to the previously placed mesh and abdominal wall with multiple Protac applications obliterating the internal hernia space. Hemostasis was assured. Trocars were then removed under direct vision and pneumopreperitoneum was released. Trocar sites were closed with 4-0 Monocryl subcuticular stitches, and the wounds were infiltrated wi th 0.5% Marcaine. Tolerated the procedure quite well, was taken to the recovery room in good condit ion. No complications. /[id number]/MODL
--- NOTE | 2016-09-20 15:18 | GCON ---
[f rep st] CONSULTATION CARDIOVASCULAR CONSULTATION HISTORY OF PRESENT ILLNESS: The patient was admitted to the hospital recently for a small bowel obs truction. That has been repaired by Dr. Mann in the Surgical Service. He is being followed very closely, and he has had a low heart rate intermittently. An EKG showed a right bundle-branch block and atrial fibrillation with a slow ventricular response. The patient has had a history of atrial fibrillation in the past, and he has no complaints or sympto ms of it, and he is not even aware that he is having atrial fibrillation. He has been taking his medications. He had been doing well, and he has not been having any other pr oblems. He feels much better after his surgery. His abdomen is much, much better. He does not smo ke. He does not drink significant amounts of alcohol. He is quite active. Now postoperatively he has had atrial fibrillation with a slow ventricular response. He is not having any other complaints like fevers, chills. He is not having nausea or vomiting now. He is not lightheaded or dizzy. He has had no focal neurologic deficits. He has had no chest sherron n, chest tightness, jaw pain, or arm pain. He has not had orthopnea, PND, or dyspnea on exertion. He has had no trauma recently. CARDIAC RISK FACTORS: Include diabetes mellitus, hyperlipidemia, coronary artery bypass grafting. His cardiac risk factors are negative for myocardial infarction, PCI, hyperuricemia, obesity, or smo pollo history. He has no other complaints right at this time except he is trying to move his bowels after his bowel surgery. REVIEW OF SYSTEMS: A 10-point review of systems negative except as noted above. Obstructive sleep apnea, COPD, cor pulmonale. PAST MEDICAL HISTORY: Including cecal carcinoma. Cardiac-hedrick he is known to have moderate mitral regurgitation, mild aortic stenosis, dyslipidemia, hypertension as noted. 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 PAST SURGICAL HISTORY: Status post cholecystectomy. MEDICATIONS: At home are aspirin, atorvastatin, Isordil, Bystolic, nitroglycerin, ramipril, Flomax, Glucophage. ALLERGIES: Penicillin. SOCIAL HISTORY: He was born in [place], [place]. 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 He still walks 3 times a week at the [facility] and is walki ng a further distance all the time. He lives with his , and she is healthy. PHYSICAL EXAMINATION: VITAL SIGNS: Blood pressure 120/75, heart rate 44, respiratory rate 12. GEN ERAL: Lying comfortably in bed. NECK: Supple. CARDIOVASCULAR: Reveals S1 and S2, irregularly ir regular. Soft systolic ejection murmur second right intercostal space without significant radiation to the neck, and he also has a soft systolic murmur left sternal border. ABDOMEN: Soft. Bowel so unds are diminished. CVA: No tenderness. SKIN: Shows age-related changes. EXTREMITIES: No lena a, inflammation, or ulceration. NEUROLOGIC: Grossly intact. PSYCH: No obvious anxiety or depression. ASSESSMENT AND PLAN: 1. Coronary artery disease. 2. Dyslipidemia. 3. Diabetes mellitus. 4. History of atrial fibrillation. 5. Partial bowel obstruction. The patient is postoperative and is having atrial fibrillation with slow ventricular response. He feels very well and wants to go home. His [id number] score is high enough so that he should be on full anticoagulation, but he has had it before, and he has had profound bleeding from the rectum and orally in the GI tract. So he does not want to take Xarelto, Eliquis, or any of those drugs. He does not want to take Coumadin. He wants to take full aspirin and discuss later once he is over the surgery with Dr. oJy, who is his metrology engineer, to switch to agrawal anticoagulation. He is ba sically not interested in it at this point in time. He understands that full anticoagulation really improves his risk of stroke compared to aspirin; however, he does not want to take full anticoagula tion right now. So for now, he is having some noted richar arrhythmias in the 40s, but he is totally asymptomatic. Karmen neil does not want to do any further monitoring. He will be monitored overnight. He will stay in the hospital overnight; however, he does not want to do any further testing. He does want to wait here and be observed. He wants to get home as soon as possible which would be in the morning, according to him and his . When he does follow up with Dr. Joy, he will take up the idea of full anticoagulation which I carmelo e recommended, and I think is much better for him for stroke prevention even with a history of signi ficant GI bleeding; however, I understand how afraid he is of GI bleeding, and he is going to stick with aspirin for now. I have talked to his extensively. I have talked to his [id number]. I have talked to Dr. Juwan dailey' office. /[id number]/MODL
[2016-09-21] MEDS ORDERED: ASPIRIN 325 MG TAB PO SCH (09:00)
== END 2016-09-20 17:40 | disposition home or self-care (01) | DRG 358 ==
LOC: UNDOADMOB 20:50 → F3N 21:25 → INTOOBSV 09-16 10:56 → OBSVTOIN 09-16 10:56 → UNDODISIN 09-20 17:40
PROVIDERS: ADMIT Surgery; ATTEND Surgery
PROC: 0DQW4ZZ Repair Peritoneum, Percutaneous Endoscopic Approach (ICD-10-PCS; principal; 2016-09-16 14:00)
PROC: 0D9670Z Drainage of Stomach with Drainage Device, Via Natural or Artificial Opening (ICD-10-PCS; 2016-09-16 14:00)
DX: K45.0 Other specified abdominal hernia with obstruction, without gangrene (principal); I25.10 Atherosclerotic heart disease of native coronary artery without angina pectoris; E11.9 Type 2 diabetes mellitus without complications; I10 Essential (primary) hypertension; J44.9 Chronic obstructive pulmonary disease, unspecified; I48.91 Unspecified atrial fibrillation; I44.7 Left bundle-branch block, unspecified; I35.0 Nonrheumatic aortic (valve) stenosis; I34.0 Nonrheumatic mitral (valve) insufficiency; E78.5 Hyperlipidemia, unspecified; Z98.890 Other specified postprocedural states; Z85.038 Personal history of other malignant neoplasm of large intestine; Z95.1 Presence of aortocoronary bypass graft
CPT/HCPCS: C1781; J0690; J1170; J1885; J2405; J2704; J3010; Q9967

== ENCOUNTER → 2016-10-13 | Outpatient (CLI) | payer OTHER, MEDICARE ==
--- NOTE | 2016-10-19 12:45 | GCON ---
[f rep st] CONSULTATION DATE OF CONSULTATION: 09/15/2016 HISTORY OF PRESENT ILLNESS: The patient is an 81-year-old male who is status post ventral hernia re pair and presents at this point having some vague abdominal pain and a question of a small bowel obs truction seen on CT scan. Labs are normal. He has had no significant vomiting. He had a normal maycol wel movement this morning, but he did have some very hard straining for bowel movement, and he is wo rried that he popped something loose. He is here at this time for evaluation because of his signifi cant cardiac history, and the possibility of a small bowel obstruction is present. ALLERGIES: Penicillin. MEDICATIONS: Listed in the chart. PAST HISTORY: History of aortic stenosis, coronary artery disease, elevated cholesterol, hypertensi on, and AFib. He has had small bowel obstruction, bypass graft, cholecystectomy, and inguinal herni a repair. MEDICATIONS: Include aspirin, Lipitor, Bystolic, isosorbide, metformin, Nitrostat, ramipril, raniti dine, and Flomax. SOCIAL HISTORY: He is an ex smoker. REVIEW OF SYSTEMS: Negative for full 10-point review. PHYSICAL EXAMINATION: CONSTITUTIONAL: Alert, comfortable, 81-year-old male in no acute distress. HEAD/NECK: No icterus, adenopathy, or oral lesions. No bruits. Neck is supple with no thyromegaly . Chest is clear with symmetrical breath sounds. CARDIAC: Regular rhythm without murmurs. ABDOME N: Soft, slightly distended, and nontender. A midline incision which appears to be healing well. There is no palpable evidence of recurrent hernias. PLAN: Admit for observation. Risks and options we4re fully discussed. He may need laparoscopy if his symptoms persist. /[id number]/MODL
== END ==
LOC: BHFA 09:00
PROVIDERS: ATTEND Internal Medicine Cardiovascular Disease
DX: I48.91 Unspecified atrial fibrillation (principal); R53.83 Other fatigue

== ENCOUNTER → 2017-08-22 | Outpatient (CLI) | payer OTHER, MEDICARE | LOC: BHFA 10:00 | PROVIDERS: ATTEND Internal Medicine Cardiovascular Disease | DX: I35.0 Nonrheumatic aortic (valve) stenosis (principal) ==

== ENCOUNTER → 2018-08-14 | Outpatient (CLI) | payer OTHER, MEDICARE | LOC: BMCIMAGING 12:16 | PROVIDERS: ATTEND Internal Medicine | DX: M51.36 Other intervertebral disc degeneration, lumbar region (principal) ==